=== PATIENT | male | born 1975 | race Caucasian/White ===

== ENCOUNTER 2017-10-07 13:56 | Emergency (ER) | payer OTHER ==
[~2017-10-07] VITALS: Ht 182.9 cm; Wt 104.3 kg
[~2017-10-07 13:56] MED LIST: HYDR-971 PO
[2017-10-07 14:04] VITALS: BP 116/80
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
[2017-10-07] MEDS ORDERED: CYCL-331 PO (15:03)
== END 2017-10-07 15:20 | disposition home or self-care (01) ==
LOC: ER 13:56
DX: M54.2 Cervicalgia (principal); Z88.0 Allergy status to penicillin; W19.XXXA Unspecified fall, initial encounter; Y93.89 Activity, other specified; Y99.8 Other external cause status; Y92.89 Other specified places as the place of occurrence of the external cause
CPT/HCPCS: 72125; 99284-25